=== PATIENT | male | born 1995 | race Caucasian/White ===

== ENCOUNTER 2016-07-16 20:41 | Emergency (ER) | payer SELFPAY ==
[2016-07-16 21:07] VITALS: TEMP 97.8
[2016-07-16] MEDS ORDERED: Albuterol-Ipratrop 3 mg / 0.5 (3 ml) UD ONE ×2 (21:13→22:01)
--- NOTE | 2016-07-16 21:34 | C.PDOC ---
History Of Present Illness Patient presents to the ER with a complaint of shortness of breath that has worsened since yesterday. Patient states he has no inhaler and denies any fever , chills, nausea, or vomiting. Patient is able to speak in complete sentences. Time Seen by Provider: 07/16/16 21:33 Chief Complaint (Nursing): Respiratory Distress History Per: Patient History/Exam Limitations: no limitations Onset/Duration Of Symptoms: Days (1) Current Symptoms Are (Timing): Still Present Associated Symptoms: Dyspnea Severity: Mild Pain Scale Rating Of: 3 - Asthma History Rescue Medications: None Past Medical History Reviewed: Historical Data, Nursing Documentation, Vital Signs Vital Signs: Last Vital Signs Temp 97.8 F 07/16/16 21:05 Pulse 78 07/16/16 21:05 Resp 14 07/16/16 21:05 BP 116/78 07/16/16 21:05 Pulse Ox 98 07/16/16 21:46 - Medical History PMH: Asthma Family History: States: No Known Family Hx - Social History Hx Tobacco Use: No Hx Alcohol Use: Yes Hx Substance Use: No - Immunization History Hx Tetanus Toxoid Vaccination: No Hx Influenza Vaccination: No Hx Pneumococcal Vaccination: No Review Of Systems Constitutional: Negative for: Fever, Chills Cardiovascular: Negative for: Chest Pain, Palpitations Respiratory: Positive for: Shortness of Breath Gastrointestinal: Negative for: Nausea, Vomiting Physical Exam - Physical Exam Appears: Well, Non-toxic Skin: Warm, Dry Oral Mucosa: Moist Chest: Symmetrical Cardiovascular: Rhythm Regular Respiratory: No Rales, No Rhonchi, Wheezing (Scattered) Gastrointestinal/Abdominal: Soft, No Tenderness Neurological/Psych: Oriented x3, Normal Speech, Normal Cognition ED Course And Treatment O2 Sat by Pulse Oximetry: 98 (Room air) Pulse Ox Interpretation: Normal Progress Note: Nebulizer treatment and peak flow pre/post tx ordered. duonebs and prednisone PO administered. Reevaluation Time: 22:33 Reassessment Condition: Improved Critical Care Time - Critical Care Note Total Time (in mins): 30 Documented critical care: time excludes all time spent performing seperately billable procedures. Medical Decision Making Medical Decision Making: Upon provider reevaluation patient is feeling better, is medically stable, and requires no further treatment in the ED at this time. Patient will be discharged home with Rx for albuterol, prednisone. Counseling was provided and all questions were answered regarding diagnosis and need for follow up with the referred clinic. There is agreement to discharge plan. Return if symptoms persist or worsen. Disposition Counseled Patient/Family Regarding: Studies Performed, Diagnosis, Need For Followup, Rx Given - Disposition Referrals: [facility] at [facility] [Outside] Disposition: HOME/ ROUTINE Disposition Time: 21:34 Condition: FAIR Additional Instructions: Please return if symptoms recur Prescriptions: Albuterol HFA [Ventolin HFA 90 mcg/actuation (8 g)] 2 puff IH [id number] PRN #1 puff PRN Reason: asthma Albuterol 0.083% [Albuterol Sulfate 3 Ml] 3 ml IH QID PRN #50 neb PRN Reason: asthma Prednisone [Deltasone] 20 mg PO DAILY #5 tablet Instructions: Asthma (DC) - Clinical Impression Clinical Impression: Exacerbation of asthma - Scribe Statement The provider has reviewed the documentation as recorded by the Scribangel Peters All medical record entries made by the Lolaibangel were at my direction and personally dictated by me. I have reviewed the chart and agree that the record accurately reflects my personal performance of the history, physical exam, medical decision making, and the department course for this patient. I have also personally directed, reviewed, and agree with the discharge instructions and disposition.
[2016-07-16] MEDS ORDERED: Albuterol-Ipratrop 3 mg / 0.5 (3 ml) UD IH SCH (21:45)
[2016-07-16 23:04] VITALS: BP 136/82; PULSE 83; RESP 18; O2SAT 100
== END 2016-07-16 22:57 | disposition home or self-care (01) ==
LOC: C.ER 20:41
DX: J45.901 Unspecified asthma with (acute) exacerbation (principal)

== ENCOUNTER 2016-08-15 19:46 | Emergency (ER) | payer SELFPAY ==
[2016-08-15 20:03] VITALS: BP 128/80; PULSE 79; RESP 20; TEMP 98.5; O2SAT 95
[2016-08-15] MEDS ORDERED: Bacitracin 500 Units/gm Oint Foilpak UD TOP ONE (20:27)
[2016-08-15] MEDS ORDERED: Bacitracin 500 Units/gm Oint Foilpak UD ONE (20:31)
--- NOTE | 2016-08-15 21:23 | C.PDOC ---
History Of Present Illness The patient, a 21 y/o male, presents to the ED for evaluation of right hand pain which began after he punched a wall [employer]. Patient states he is right hand dominant. He denies any other injuries as well as extremity numbness/weakness or sensory changes. Time Seen by Provider: 08/15/16 20:16 Chief Complaint (Nursing): Upper Extremity Problem/Injury History Per: Patient History/Exam Limitations: no limitations Onset/Duration Of Symptoms: Hrs Current Symptoms Are (Timing): Still Present Quality: "Pain" Additional History Per: Patient Past Medical History Reviewed: Historical Data, Nursing Documentation, Vital Signs Vital Signs: Last Vital Signs Temp 98.5 F 08/15/16 20:00 Pulse 79 08/15/16 20:00 Resp 20 08/15/16 20:00 BP 128/80 08/15/16 20:00 Pulse Ox 95 08/15/16 22:00 - Medical History PMH: Asthma Surgical History: No Surg Hx Family History: States: Unknown Family Hx - Social History Hx Tobacco Use: No Hx Alcohol Use: Yes Hx Substance Use: No - Immunization History Hx Tetanus Toxoid Vaccination: No Hx Influenza Vaccination: No Hx Pneumococcal Vaccination: No Review Of Systems Except As Marked, All Systems Reviewed And Found Negative. Musculoskeletal: Positive for: Hand Pain (right) Neurological: Negative for: Weakness, Numbness Physical Exam - Physical Exam Appears: Non-toxic, No Acute Distress Skin: Warm, Dry Head: Atraumatic, Normacephalic Eye(s): bilateral: Normal Inspection, EOMI Oral Mucosa: Moist Chest: Symmetrical Respiratory: No Accessory Muscle Use Extremity: No Normal ROM (decreased secondary to pain), Tenderness (to R 5th metacarpal), Capillary Refill (less than 2 seconds ), No Deformity, Swelling ( to R 5th metacarpal ), Other (+superficial abrasion above right 5th adn 4th metacarpal. ) Pulses: Left Radial: Normal, Right Radial: Normal Neurological/Psych: Oriented x3, Normal Speech, Normal Cognition, Normal Sensation Gait: Steady ED Course And Treatment O2 Sat by Pulse Oximetry: 95 (on RA ) Pulse Ox Interpretation: Normal Progress Note: Right hand XR ordered and reviewed. Bacitracin TOP applied to affected area. Patient received Motrin PO. Ulnar gutter splint applied to hand by me. On reassessment, patient is resting comfortably, showing no signs of distress and notes an improvement in his hand pain. Patient is advised to follow up with hand specialist within 1-2 days for further evaluation. Reassessment Condition: Improved Disposition - Disposition Referrals: [facility] at [facility] [Outside] [facility] [Outside] Kaykay Mccord MD [Provisional Staff] - Disposition: HOME/ ROUTINE Disposition Time: 21:20 Condition: STABLE Additional Instructions: Rest, ice and elevate the area. Follow up with hand specialist in 1- 2 days. Prescriptions: Cephalexin [cephalexin] 500 mg PO BID #14 cap traMADol [Ultram] 50 mg PO Q8 #20 tab Instructions: Hand Fracture (ED) - Clinical Impression Clinical Impression: Hand fracture - Scribe Statement The provider has reviewed the documentation as recorded by the Scribe (Rosemary Moulton) All medical record entries made by the Scribe were at my direction and personally dictated by me. I have reviewed the chart and agree that the record accurately reflects my personal performance of the history, physical exam, medical decision making, and the department course for this patient. I have also personally directed, reviewed, and agree with the discharge instructions and disposition.
--- NOTE | 2016-08-16 08:27 | RAD ---
PROCEDURE: Right Hand Radiographs. HISTORY: trauma COMPARISON: None. FINDINGS: BONES: A 5th meta carpal distal shaft- distal to metaphyseal comminuted fracture with slight dorsal and ulnar sided apical angulation is present. No additional displacement is suggested. Here marked overlying soft tissue swelling is present. JOINTS: Normal. No osteoarthritic changes. SOFT TISSUES: Soft tissue swelling as above OTHER FINDINGS: None. IMPRESSION: Comminuted 5th metacarpal fracture
== END 2016-08-15 21:33 | disposition home or self-care (01) ==
LOC: C.ER 19:46
DX: S62.306A Unspecified fracture of fifth metacarpal bone, right hand, initial encounter for closed fracture (principal); W22.09XA Striking against other stationary object, initial encounter; Y92.89 Other specified places as the place of occurrence of the external cause